=== PATIENT | female | born 1990 | race Caucasian/White ===

== ENCOUNTER 2016-04-02 19:06 | Emergency (ER) | payer MEDICAID ==
[~2016-04-02] VITALS: Ht 167.6 cm; Wt 117.7 kg
[~2016-04-02 19:06] MED LIST: BUSP10 PO; LEXA10TA PO; METH500T3 PO; MONT10TA2 PO; OMEP20TA39 PO; PREG100 PO
[2016-04-02 19:11] VITALS: BP 109/66; PULSE 76; RESP 18; TEMP 98.6; O2SAT 97
[2016-04-02 19:39] LABS: BLOOD, URINE NEG (NEG); GLUCOSE,URINE NEG (NEG); KETONE, URINE NEG (NEG); NITRITE,URINE NEG (NEG)
[2016-04-02 20:12] LABS: URINE COLOR YELLOW (YELLW/STRAW)
[2016-04-02 20:13] LABS: COMMENT (UR) CULT NOT INDICATED; CULTURE IF INDICATED CULT NOT INDICATED; SQUAMOUS EPITHELIAL CELL URINE 0-5 /hpf (0-5); WBC, URINE 0-2 /hpf (0-5)
[2016-04-02] MEDS ORDERED: SODIUM CHLOR 0.9% 1000 ML INJ 1,000 ML IV SCH (20:22)
--- NOTE | 2016-04-02 20:27 | PD ---
HPI Chief Complaint: GI Complaint Time Seen by Provider: 20:12 Travel History International Travel<30 days: No Contact w/Intl Traveler<30days: No Traveled to known affect area: No History of Present Illness HPI 25yo F with PMH of chiari malformation presents to the ED with c/o black stool for 2 days. States she has been diarrhea for 4-5 days. Had vomited 2 days ago that had blood in it. No further episodes of vomiting. States her family members all had vomiting and diarrhea. +Nausea. Denies any fever, chest pain , sob, abdominal pain, weakness, numbness, vaginal discharge or bleeding. States her grandmother had colon cancer. Had endoscopy 2 years ago for gallbladder issues but states it was negative. Never had colonoscopy. PFSH Past Medical History Hx Anticoagulant Therapy: No Arthritis: Yes Asthma: Yes Bipolar Disorder: Yes Anxiety: Yes Depression: Yes Cardiovascular Problems: No Chemotherapy: No Cerebrovascular Accident: No Diabetes: No Diminished Hearing: No Gastrointestinal Disorders: Yes (gallbladder attacks, CHIARIMALFORMATION) Herniated Disk: Yes Psychiatric: Yes Respiratory: Yes (ASTHMA) Immunizations Current: Yes Tetanus Vaccination: Unknown Influenza Vaccination: No ?: Not : 3 Para: 1 Miscarriage: 2 Ectopic : Yes Tubal Ligation: Yes Past Surgical History Section: Yes Gynecologic Surgery: Yes ( AND TUBAL) Hysterectomy: No Other Surgery: Yes (endoscopy) Social History Alcohol Use: Yes (Occ.) Tobacco Use: Yes (1/2 PPD) Substance Use: No (Denies) Allergies-Medications (Allergen,Severity, Reaction): Coded Allergies: No Known Allergies (Unverified , 09/20/15) Reported Meds & Prescriptions Reported Meds & Active Scripts Active Protonix (Pantoprazole Sodium) 40 Mg Tab 40 Mg PO DAILY 5 Days Reported Vistaril (Hydroxyzine Pamoate) 50 Mg Cap 50 Mg PO BID Celexa (Citalopram Hydrobromide) 10 Mg Tab 10 Mg PO DAILY Latuda (Lurasidone) 40 Mg Tab 40 Mg PO DAILY Methocarbamol 500 Mg Tab 500 Mg PO TID Lyrica (Pregabalin) 100 Mg Cap 100 Mg PO TID Review of Systems Except as stated in HPI: all other systems reviewed are Neg Physical Exam Narrative GENERAL: 25yo F not in distress. SKIN: Warm and dry. HEAD: Atraumatic. Normocephalic. EYES: Pupils equal and round. No scleral icterus. No injection or drainage. ENT: No nasal bleeding or discharge. Mucous membranes pink and moist. NECK: Trachea midline. No JVD. CARDIOVASCULAR: Regular rate and rhythm. No murmur appreciated. RESPIRATORY: No accessory muscle use. Clear to auscultation. Breath sounds equal bilaterally. GASTROINTESTINAL: Abdomen soft,obese. No tenderness on palpation. No rebound tenderness or guarding. RECTAL: No external hemorrhoids. +Small amount of red mucous on rectal exam. No black stool. +Hemaprompt. MUSCULOSKELETAL: No obvious deformities. No clubbing. No cyanosis. No edema. NEUROLOGICAL: Awake and alert. No obvious cranial nerve deficits. Motor grossly within normal limits. Normal speech. PSYCHIATRIC: Appropriate mood and affect; insight and judgment normal. Data Data Last Documented VS Vital Signs Date Time Temp Pulse Resp B/P Pulse Ox O2 Delivery O2 Flow Rate FiO2 04/02/16 21:21 18 99 Room Air 04/02/16 19:11 98.6 76 109/66 Orders Urinalysis - C+S If Indicated (04/02/16 19:27) Ed Urine Pregnancytest Poc (04/02/16 19:50) Basic Metabolic Panel (Bmp) (04/02/16 20:22) Complete Blood Count With Diff (04/02/16 20:22) Lipase (04/02/16 20:22) Prothrombin Time / Inr (Pt) (04/02/16 20:22) Act Partial Throm Time (Ptt) (04/02/16 20:22) Chest, Single Ap (04/02/16 20:22) Ecg Monitoring (04/02/16 20:22) Iv Access Insert/Monitor (04/02/16 20:22) Oximetry (04/02/16 20:22) Ondansetron Inj (Zofran Inj) (04/02/16 20:30) Sodium Chlor 0.9% 1000 Ml Inj (Ns 1000 M (04/02/16 20:22) Sodium Chloride 0.9% Flush (Ns Flush) (04/02/16 20:30) Pantoprazole Inj (Protonix Inj) (04/02/16 20:30) Pantoprazole Inj (Protonix Inj) (04/02/16 20:30) Type And Screen (04/02/16 20:22) Urinalysis - C+S If Indicated (04/02/16 20:33) Labs Laboratory Tests Test 04/02/16 04/02/16 19:30 20:25 Urine Color YELLOW Urine Turbidity HAZY Urine pH 8.0 Urine Specific [place] 1.020 Urine Protein NEG mg/dL Urine Glucose (UA) NEG mg/dL Urine Ketones NEG mg/dL Urine Occult Blood NEG Urine Nitrite NEG Urine Bilirubin NEG Urine Leukocyte Esterase NEG Urine WBC 0-2 /hpf Urine Squamous Epithelial 0-5 /hpf Cells Urine Amorphous Sediment MOD Microscopic Urinalysis Comment CULT NOT INDICATED White Blood Count 10.2 TH/MM3 Red Blood Count 4.93 MIL/MM3 Hemoglobin 14.4 GM/DL Hematocrit 42.7 % Mean Corpuscular Volume 86.7 FL Mean Corpuscular Hemoglobin 29.2 PG Mean Corpuscular Hemoglobin 33.7 % Concent Red Cell Distribution Width 13.7 % Platelet Count 361 TH/MM3 Mean Platelet Volume 8.7 FL Neutrophils (%) (Auto) 62.5 % Lymphocytes (%) (Auto) 29.0 % Monocytes (%) (Auto) 5.7 % Eosinophils (%) (Auto) 2.4 % Basophils (%) (Auto) 0.4 % Neutrophils # (Auto) 6.4 TH/MM3 Lymphocytes # (Auto) 3.0 TH/MM3 Monocytes # (Auto) 0.6 TH/MM3 Eosinophils # (Auto) 0.2 TH/MM3 Basophils # (Auto) 0.0 TH/MM3 CBC Comment DIFF FINAL Differential Comment Prothrombin Time 10.8 SEC Prothromb Time International 1.0 RATIO Ratio Activated Partial 29.6 SEC Thromboplast Time Sodium Level 143 MEQ/L Potassium Level 4.4 MEQ/L Chloride Level 105 MEQ/L Carbon Dioxide Level 29.7 MEQ/L Anion Gap 8 MEQ/L Blood Urea Nitrogen 12 MG/DL Creatinine 0.89 MG/DL Estimat Glomerular Filtration 76 ML/MIN Rate Random Glucose 90 MG/DL Calcium Level 9.5 MG/DL Lipase 114 U/L [facility] Medical Decision Making Medical Screen Exam Complete: Yes Emergency Medical Condition: Yes Interpretation(s) Vital Signs Date Time Temp Pulse Resp B/P Pulse Ox O2 Delivery O2 Flow Rate FiO2 04/02/16 21:21 18 99 Room Air 04/02/16 20:03 18 04/02/16 19:11 98.6 76 18 109/66 97 Laboratory Tests Test 04/02/16 04/02/16 19:30 20:25 Urine Color YELLOW (YELLW/STRAW) Urine Turbidity HAZY (CLEAR) Urine pH 8.0 (5.0-8.5) Urine Specific [place] 1.020 (1.002-1.035) Urine Protein NEG mg/dL (NEG-TRACE) Urine Glucose (UA) NEG mg/dL (NEG) Urine Ketones NEG mg/dL (NEG) Urine Occult Blood NEG (NEG) Urine Nitrite NEG (NEG) Urine Bilirubin NEG (NEG) Urine Leukocyte Esterase NEG (NEG) Urine WBC 0-2 /hpf (0-5) Urine Squamous Epithelial 0-5 /hpf (0-5) Cells Urine Amorphous Sediment MOD Microscopic Urinalysis Comment CULT NOT INDICATED White Blood Count 10.2 TH/MM3 (4.0-11.0) Red Blood Count 4.93 MIL/MM3 (4.00-5.30) Hemoglobin 14.4 GM/DL (11.6-15.3) Hematocrit 42.7 % (35.0-46.0) Mean Corpuscular Volume 86.7 FL (80.0-100.0) Mean Corpuscular Hemoglobin 29.2 PG (27.0-34.0) Mean Corpuscular Hemoglobin 33.7 % Concent (32.0-36.0) Red Cell Distribution Width 13.7 % (11.6-17.2) Platelet Count 361 TH/MM3 (150-450) Mean Platelet Volume 8.7 FL (7.0-11.0) Neutrophils (%) (Auto) 62.5 % (16.0-70.0) Lymphocytes (%) (Auto) 29.0 % (9.0-44.0) Monocytes (%) (Auto) 5.7 % (0.0-8.0) Eosinophils (%) (Auto) 2.4 % (0.0-4.0) Basophils (%) (Auto) 0.4 % (0.0-2.0) Neutrophils # (Auto) 6.4 TH/MM3 (1.8-7.7) Lymphocytes # (Auto) 3.0 TH/MM3 (1.0-4.8) Monocytes # (Auto) 0.6 TH/MM3 (0-0.9) Eosinophils # (Auto) 0.2 TH/MM3 (0-0.4) Basophils # (Auto) 0.0 TH/MM3 (0-0.2) CBC Comment DIFF FINAL Differential Comment Prothrombin Time 10.8 SEC (9.8-11.6) Prothromb Time International 1.0 RATIO Ratio Activated Partial 29.6 SEC Thromboplast Time (24.3-30.1) Sodium Level 143 MEQ/L (136-145) Potassium Level 4.4 MEQ/L (3.5-5.1) Chloride Level 105 MEQ/L (98-107) Carbon Dioxide Level 29.7 MEQ/L (21.0-32.0) Anion Gap 8 MEQ/L (5-15) Blood Urea Nitrogen 12 MG/DL (7-18) Creatinine 0.89 MG/DL (0.50-1.00) Estimat Glomerular Filtration 76 ML/MIN (>89) Rate Random Glucose 90 MG/DL (74-106) Calcium Level 9.5 MG/DL (8.5-10.1) Lipase 114 U/L (73-393) Differential Diagnosis GI bleed secondary to colitis vs. polyps vs. upper GI bleed Narrative Course 25yo F with black stool for 2 days. Pt had symptoms of gastroenteritis and states she last vomited 2 days ago but had episode of blood in the vomit. Pt still with diarrhea. Hemaprompt positive. Will check labs, CXR, and give IV protonix. Pt is hemodynamically stable and well appearing with no abdominal tenderness on exam. Labs reviewed, no leukocytosis. H/H 14.4/42.7. Chemistry unremarkable. Normal lipase. UA showed no leukocyte. Culture not indicated. VS stable. CXR showed no acute disease. No free air. Discussed case with GI physician advertising operations manager Dr. Cleaning who states that pt can follow up as outpatient if I believe she is hemodynamically stable which she is. Discussed with pt and she agrees with plan and will call his office tomorrow for follow up as outpatient. Pt has not vomited and had no black stool in her bowel movement in the ED. Still no abdominal pain. Pt is well appearing and not in distress. Strict return precautions given. [facility] Point of Care Internal Pos. & Neg. Controls: Passed Fecal Specimen Occult Blood: Positive Diagnosis Primary Impression: Black stool Referrals: Yoselin Langford MD 1 day Black stool for 2 days. Patient Instructions: General Instructions Departure Forms: Tests/Procedures Additional Instructions: Please call Dr. Cleaning's office tomorrow for outpatient follow up. Return to the ED if you have any worsening symptoms. Med/Other Pt SpecificInfo: Prescription(s) given Scripts Pantoprazole (Protonix)40 Mg Tab40 Mg PO DAILY 5 Days Ref 0 Prov:Alice Magana DO 04/02/16 Disposition: 01 DISCHARGE HOME Condition: Stable Alice Magana DO Apr 02, 2016 20:27
[2016-04-02] MEDS ORDERED: PANTOPRAZOLE INJ 80 MG in SODIUM CHLORIDE 0.9% INJ 35 ML IV ONE (20:30)
[2016-04-02] MEDS ORDERED: ONDANSETRON HCL 4 MG/2 ML VIAL IVP ONE (20:30)
[2016-04-02] MEDS ORDERED: SODIUM CHLORIDE 0.9% FLUSH 5 ML FLUSH IVF PRN (20:30)
[2016-04-02] MEDS ORDERED: PANTOPRAZOLE INJ 80 MG in SODIUM CHLORIDE 0.9% INJ 100 ML IV SCH (20:30)
[2016-04-02 20:42] LABS: AUTOMATED NEUTROPHIL # 6.4 TH/MM3 (1.8-7.7); BASOPHIL % 0.4 % (0.0-2.0); EOSINOPHIL # 0.2 TH/MM3 (0-0.4); EOSINOPHIL % 2.4 % (0.0-4.0); HEMATOCRIT 42.7 % (35.0-46.0); HEMO FLAGS DIFF FINAL; MEAN CELL VOLUME 86.7 FL (80.0-100.0); MEAN CORPUSCULAR HEMOGLOBIN 29.2 PG (27.0-34.0); MEAN CORPUSCULAR HGB CONC 33.7 % (32.0-36.0); MONO % 5.7 % (0.0-8.0); NEUT % 62.5 % (16.0-70.0); PLATELET COUNT 361 TH/MM3 (150-450); RED BLOOD COUNT 4.93 MIL/MM3 (4.00-5.30); RED CELL DISTRIBUTION WIDTH 13.7 % (11.6-17.2); WHITE BLOOD COUNT 10.2 TH/MM3 (4.0-11.0)
--- NOTE | 2016-04-02 20:42 | RADHPO ---
EXAM DATE/TIME: 04/02/2016 20:35 [facility] COMPARISON: No previous studies available for comparison. INDICATIONS : Chest discomfort, abdominal pain for 3 days MEDICAL HISTORY : None. SURGICAL HISTORY : None. ENCOUNTER: Initial ACUITY: 3 days PAIN SCORE: 0/10 LOCATION: Bilateral chest FINDINGS: A single view of the chest demonstrates the lungs to be symmetrically aerated without evidence of mas s, infiltrate or effusion. The cardiomediastinal contours are unremarkable. Osseous structures are intact. CONCLUSION: No acute disease. Nixon Meade MD on April 02, 2016 at 20:41 Board Certified Radiologist. This report was verified electronically.
[2016-04-02 20:51] LABS: POTASSIUM 4.4 MEQ/L (3.5-5.1)
[2016-04-02 20:54] LABS: BICARBONATE 29.7 MEQ/L (21.0-32.0)
[2016-04-02 20:57] LABS: APTT (PATIENT) 29.6 SEC (24.3-30.1); PROTHROMBIN TIME - PATIENT 10.8 SEC (9.8-11.6)
[2016-04-02] MEDS ORDERED: VIST50CA PO (21:16)
[2016-04-02] MEDS ORDERED: METH500T3 PO (21:16)
[2016-04-02] MEDS ORDERED: LYRI100C PO (21:16)
[2016-04-02] MEDS ORDERED: CELE10TA PO (21:16)
[2016-04-02] MEDS ORDERED: LURA40 PO (21:16)
[2016-04-02 21:21] VITALS: RESP 18; O2SAT 99
[2016-04-02] MEDS ORDERED: PROT40TA PO (21:29)
[2016-04-02 21:51] VITALS: BP 110/68; PULSE 76; RESP 18; O2SAT 98
== END 2016-04-02 21:51 | disposition home or self-care (01) ==
LOC: PHED 19:06
DX: K92.1 Melena (principal); G93.5 Compression of brain; F17.210 Nicotine dependence, cigarettes, uncomplicated
CPT/HCPCS: 71010; 80048; 81001; 83690; 84703; 85025; 85610; 85730; 86850; 86900; 86901; 96365; 96375; 99285; C9113; J2405; J7030